=== PATIENT | male | born 1940 | race Caucasian/White ===

== ENCOUNTER 2023-07-17 10:17 | Emergency (ER) | payer MEDICARE ==
[~2023-07-17] VITALS: Ht 188 cm; Wt 74.8 kg
[2023-07-17 10:24] VITALS: BP 148/47; PULSE 84; RESP 16; TEMP 98.2; O2SAT 0
[2023-07-17 10:25] VITALS: O2SAT 0
[2023-07-17 12:14] VITALS: BP 154/70; PULSE 71; RESP 18; TEMP 98.2; O2SAT 98
== END 2023-07-17 12:15 | disposition home or self-care (01) ==
LOC: MED 10:17
DX: S61.411A Laceration without foreign body of right hand, initial encounter (principal); Z98.890 Other specified postprocedural states; V47.5XXA Car driver injured in collision with fixed or stationary object in traffic accident, initial encounter; Y93.89 Activity, other specified; Y92.410 Unspecified street and highway as the place of occurrence of the external cause; Y99.8 Other external cause status
CPT/HCPCS: 90471; 90715; 99283